=== PATIENT | male | born 1995 | race Caucasian/White ===

== ENCOUNTER 2017-04-01 13:38 | Emergency (ER) | payer BC ==
[~2017-04-01] VITALS: Ht 177.8 cm; Wt 77.1 kg
== END 2017-04-01 16:14 | disposition home or self-care (01) ==
LOC: ER 13:38
DX: F07.81 Postconcussional syndrome (principal); G44.309 Post-traumatic headache, unspecified, not intractable; H57.8 Other specified disorders of eye and adnexa
CPT/HCPCS: 70450; 96361; 96374; 96375; 99284; J1200; J1885; J2765; J7030